=== PATIENT | male | born 1945 | race American Indian/Alaskan Native ===

== ENCOUNTER 2019-05-09 08:14 | Day surgery (SDC) | payer OTHER ==
[~2019-05-09 08:14] MED LIST: NACL 0.9% 1000 ML 1,000 ML IV SCH
--- NOTE | 2019-05-09 09:41 | Anesthesia Consultation ---
Anesthesia Consult and Med Hx Date of service: 05/09/19 - Airway Anesthetic Teeth Evaluation: Dentures, Partials ROM Head & Neck: Adequate Mental/Hyoid Distance: Adequate Mallampati Class: Class II Intubation Access Assessment: Probably Good - Pulmonary Exam CTA: Yes - Cardiac Exam Cardiac Exam: RRR - Pre-Operative Health Status ASA Pre-Surgery Classification: ASA2 Proposed Anesthetic Plan: MAC - Pulmonary Hx Smoking: Yes (Half a pack weekly for 40 years) COPD: No Hx Pneumonia: No Hx Sleep Apnea: Yes - Cardiovascular System Hx Hypertension: Yes Hx Cardia Arrhythmia: Yes (Sinus Bradycardia) - Central Nervous System Hx Seizures: No Hx Psychiatric Problems: Yes (Depression. On Sertraline) - Gastrointestinal Hx Ulcer: No - Endocrine Hx Renal Disease: No - Other Systems Hx Alcohol Use: Yes (Drinks Beer every other day) Hx Substance Use: No Hx Obesity: No - Additional Comments Anesthesia Medical History Comments: Patient denied anesthesia related complications from previous surgeries.
--- NOTE | 2019-05-09 09:52 | Anesthesia Day of Surgery ---
Anesthesia Day of Surgery - Day of Surgery Patient Examined: Yes Patient H&P Reviewed: Yes Patient is NPO: Yes
[2019-05-09] MEDS ORDERED: DIPRIVAN 10 MG/ML IV ONE ×2 (10:27)
--- NOTE | 2019-05-09 11:07 | Procedure Note ---
Date of procedure: 05/09/19 Pre-op diagnosis: Colon Polyp Screening Post-op diagnosis: other (Solitary, Rectal Polyp (removed by cold,snare polypectomy)/ Moderate,Proximal Colon Diverticul/No Internal Hemorrhoid) Procedure: Colonoscopy with Cold Snare Polypectomy Anesthesia: MAC Surgeon: ESAU BEDOYA Estimated blood loss: minimal Pathology: list Specimen disposition: to lab Condition: stable Disposition: same day (Avoid aspirin and NSAID and anticoagulants for 4 days; otherwise resume home medication. Encourage fiber intake and follow up in 1 to 2 weeks ([phone]).)
[2019-05-09 11:37] VITALS: BP 145/67
--- NOTE | 2019-05-09 11:48 | Operative Report ---
PROCEDURE: Screening colonoscopy. INDICATIONS: A 73-year-old -[place] gentleman had a colonoscopy done to assess for any colon polyps. The procedure was done after getting informed consent with MAC anesthesia. Initial rectal exam was unremarkable. Instrument was passed through the rectum onto the cecum, which was identified by the ileocecal valve and the appendiceal orifice. The cecum showed proximal colon moderate diverticular disease and no additional pathology. The patient's cecum was again visualized in the retroflexed view and no additional pathology was noted. The cecum showed moderate proximal colon diverticular disease as noted in descending colon and the remaining part of the transverse colon showed normal mucosa. There were a few scattered diverticula noted in the left colon. In the rectum, there was a 9-10 mm sessile polyp noted that was removed by cold snare polypectomy and removed with cold biopsy and no internal hemorrhoid was noted on the retroverted view. There was minimal bleeding from the biopsy sites. No complications associated with the procedure. ASSESSMENT: Colon polyp screening, solitary rectal polyp removed by cold snare polypectomy, proximal colon moderate diverticular disease and no internal hemorrhoid. PLAN: To encourage the patient to avoid aspirin and aspirin-related products, possibly for the next 3-4 days and encourage fiber supplements and follow up in the office in 1-2 weeks' time. The procedure was done in the GI lab with assistance of the GI lab team, which included RN, Mildred Rivas, as well as Daron cooper and with assistance of Anesthesia. JOB# [id number] ILAN/ANGEL
== END 2019-05-09 08:15 | disposition home or self-care (01) ==
LOC: GIO 08:14
DX: Z12.11 Encounter for screening for malignant neoplasm of colon (principal); K62.1 Rectal polyp; K57.30 Diverticulosis of large intestine without perforation or abscess without bleeding; I42.9 Cardiomyopathy, unspecified; I10 Essential (primary) hypertension; G47.30 Sleep apnea, unspecified; F17.210 Nicotine dependence, cigarettes, uncomplicated; Z96.641 Presence of right artificial hip joint; Z72.89 Other problems related to lifestyle; Z86.010 Personal history of colon polyps; Z79.899 Other long term (current) drug therapy; Z98.890 Other specified postprocedural states
CPT/HCPCS: 45385; 88305; J2704; J7030

== ENCOUNTER 2019-06-05 15:31 | Outpatient (CLI) | payer OTHER | END 2019-06-05 15:32 | disposition home or self-care (01) | LOC: LABHHL 15:31 | PROVIDERS: ATTEND Surgery | DX: R22.0 Localized swelling, mass and lump, head (principal); I10 Essential (primary) hypertension; F17.210 Nicotine dependence, cigarettes, uncomplicated | CPT/HCPCS: 88304; 88307 ==